=== PATIENT | female | born 1990 | race African-American/Black ===

== ENCOUNTER 2019-11-01 13:44 | Emergency (ER) | payer OTHER, SELFPAY ==
[2019-11-01 13:48] VITALS: BP 114/67; PULSE 79; RESP 16; TEMP 37; O2SAT 100
--- NOTE | 2019-11-01 14:09 | ED.GENADULT ---
HPI - General Adult General Chief complaint: Upper Respiratory Infection <Manuel Ramsey PA-C - Last Filed: 11/01/19 15:33> Stated complaint: ?SINUS INFECTION <Manuel Ramsey PA-C - Last Filed: 11/01/19 15:33> Time Seen by Provider: 11/01/19 13:48 <Manuel Ramsey PA-C - Last Filed: 11/01/19 15:33> History of Present Illness HPI narrative: Patient is a 29-year-old female who presents to emergency department for evaluation of upper respiratory symptoms for the last 2 days with congestion rhinorrhea and nonproductive cough patient denies any fever chills nausea vomiting diarrhea notes that her daughter had the flu patient did not have her flu shot this year patient has not taken anything for her symptoms on arrival to emergency department patient resting comfortably in the room in no distress. <Manuel Ramsey PA-C - Last Filed: 11/01/19 15:33> Related Data Allergies/adverse reactions: Allergies Allergy/AdvReac Type Severity Reaction Status Date / Time No Known Allergies Allergy Verified 11/01/19 13:53 <Manuel Ramsey PA-C - Last Filed: 11/01/19 15:33> Review of Systems Review of Systems: Narrative: CONSTITUTIONAL: Denies fever, chills, or sweats. EYES: Denies redness, or discharge. ENT: Positive for rhinorrhea, congestion, denies sore throat, and otalgia. RESPIRATORY: Denies dyspnea. GASTROINTESTINAL: Denies abdominal pain, nausea, vomiting, or diarrhea. GENITOURINARY: Denies dysuria or hematuria. SKIN: Denies rash or itching. MUSCULOSKELETAL: Denies back pain, joint pain, or myalgia. NEUROLOGIC: Denies headache, or weakness. <Manuel Ramsey PA-C - Last Filed: 11/01/19 15:33> PMFSH Social History Social History: Social History (Updated 11/01/19 @ 14:15 by Manuel Ramsey PA-C) Smoking status: Never smoker Gender identity (if verbalized by the patient): Female <Manuel Ramsey PA-C - Last Filed: 11/01/19 15:33> Exam Narrative: Exam Narrative: GENERAL: Well-appearing, well-nourished, and in no acute distress. HEAD: Normocephalic, atraumatic. EYES: PERRLA and EOMI. ENT: Nares clear, no rhinorrhea or epistaxis. Mucous membranes moist. Oropharynx without tonsillar hypertrophy exudate or other lesions. Bilateral TMs pearly martinez nonbulging CHEST: Clear to auscultation. No respiratory distress. No wheezes rales or rhonchi HEART: Regular rate and rhythm. No murmur heard. EXTREMITIES: Normal range of motion. No edema. SKIN: Warm, dry, no rash. NEURO: No focal deficits. Alert and oriented x3. Cranial nerves II through XII grossly intact. PSYCH: Normal mood and affect. <CLARA Russell Last Filed: 11/01/19 15:33> Course Course Emergency Course: Patient in the room in no distress aware of case findings treatment plan and diagnosis <Manuel Ramsey PA-C - Last Filed: 11/01/19 15:33> Vital Signs Vital signs: Vital Signs Temperature 37.0 C 11/01/19 13:48 Pulse Rate 79 11/01/19 13:48 Respiratory Rate 16 11/01/19 13:48 Blood Pressure 114/67 11/01/19 13:48 Pulse Oximetry 100 11/01/19 13:48 Temperature 37.0 C 11/01/19 13:48 Pulse Rate 79 11/01/19 13:48 Respiratory Rate 16 11/01/19 13:48 Blood Pressure 114/67 11/01/19 13:48 Pulse Oximetry 100 11/01/19 13:48 <Manuel Ramsey PA-C - Last Filed: 11/01/19 15:33> Vital Signs Temperature 37.0 C 11/01/19 13:48 Pulse Rate 79 11/01/19 13:48 Respiratory Rate 16 11/01/19 13:48 Blood Pressure 114/67 11/01/19 13:48 Pulse Oximetry 100 11/01/19 13:48 Temperature 37.0 C 11/01/19 13:48 Pulse Rate 79 11/01/19 13:48 Respiratory Rate 16 11/01/19 13:48 Blood Pressure 114/67 11/01/19 13:48 Pulse Oximetry 100 11/01/19 13:48 <Rachel Tang MD - Last Filed: 11/01/19 15:57> Medical Decision Making MDM Narrative Medical decision making narrative: Patient in the room with likely viral respiratory infection afebr
== END 2019-11-01 15:55 | disposition home or self-care (01) ==
PROVIDERS: Emergency Provider Emergency Medicine
DX: J06.9 Acute upper respiratory infection, unspecified (principal)
CPT/HCPCS: 87804; 99283

== ENCOUNTER 2021-02-11 09:50 | Emergency (ER) | payer OTHER, SELFPAY ==
[2021-02-11 09:56] VITALS: BP 128/82; PULSE 88; RESP 15; TEMP 36.5; O2SAT 100
--- NOTE | 2021-02-11 10:11 | ED.HA ---
HPI - Headache General Chief Complaint: Headache Stated Complaint: headache Time Seen by Provider: 02/11/21 09:59 Source: patient Mode of arrival: ambulatory Limitations: no limitations History of Present Illness HPI Narrative: This is a 30-year-old female that presents the emergency department for headache x4 days. Reports a pounding frontal headache. Does report history of headaches and sinus problems. Reports she was having some congestion and sinus pain earlier this week. Reports she has been taking ibuprofen with little relief. Has not taken anything today for headache. Denies fever, stiff neck, vomiting, vision changes, numbness, or weakness. Related Data Home Medications Medication Instructions Recorded Confirmed No Home Medications 02/11/21 02/11/21 Allergies Allergy/AdvReac Type Severity Reaction Status Date / Time No Known Allergies Allergy Verified 02/11/21 10:00 Review of Systems Review of Systems: Narrative: CONSTITUTIONAL: Denies fever EYES: Denies visual changes GASTROINTESTINAL: Denies vomiting NEUROLOGIC: Reports headache. Denies numbness, or weakness. All systems reviewed & are unremarkable except as noted in HPI and below PMFSH Past Medical History Medical History (Updated 02/11/21 @ 11:19 by Missy Landon PA-C) No active medical problems Social History Social History (Updated 11/01/19 @ 14:15 by Manuel Ramsey PA-C) Smoking status: Never smoker Gender identity (if verbalized by the patient): Female Exam Narrative: Exam Narrative: GENERAL: Well-appearing, well-nourished, and in no acute distress. HEAD: Normocephalic, atraumatic. EYES: PERRLA and EOMI. ENT: Nares clear, no rhinorrhea or epistaxis. Mucous membranes moist. Oropharynx without tonsillar hypertrophy exudate or other lesions. Bilateral TMs pearly martinez non-bulging NECK: Supple. No adenopathy or masses. CHEST: Clear to auscultation. No respiratory distress. No wheezes rales or rhonchi HEART: Regular rate and rhythm. No murmur heard. Normal peripheral pulses. EXTREMITIES: Normal range of motion. No edema. Strength equal in bilateral upper and lower extremities (5/5) SKIN: Warm, dry, no rash. NEURO: No focal deficits. Alert and oriented x3. Cranial nerves II through XII grossly intact PSYCH: Normal mood and affect Course Vital Signs Vital signs: Vital Signs Temperature 97.7 F 05/17/21 09:56 Pulse Rate 88 02/11/21 09:56 Respiratory Rate 15 02/11/21 09:56 Blood Pressure 128/82 02/11/21 09:56 Pulse Oximetry 100 02/11/21 09:56 Temperature 97.7 F 02/11/21 09:56 Pulse Rate 88 02/11/21 09:56 Respiratory Rate 15 02/11/21 09:56 Blood Pressure 128/82 02/11/21 09:56 Pulse Oximetry 100 02/11/21 09:56 MDM - Headache MDM Narrative Medical decision making narrative: Patient presents the emergency department for headache noted over the last couple of days. She is afebrile and nontoxic-appearing. She is neurologically intact. Reports relief with migraine cocktail. She is stable and felt appropriate for further outpatient evaluation. She was given warnings to return to the ER Critical Care Time Critical Care Time Critical Care Time: No Discharge Plan Discharge Clinical Impression: Headache Qualifiers: Headache type: unspecified Headache chronicity pattern: acute headache Intractability: not intractable Qualified Code(s): R51.9 - Headache, unspecified Patient Disposition: Home, Self-Care Condition: Stable Instructions: Acute Headache (ED) Additional Instructions: Return to the emergency department if you experience fever, vision changes, vomiting, sudden onset numbness or weakness, stiff neck, or any other symptoms that are concerning to you Rest. Remain well-hydrated. Tylenol or ibuprofen as needed for pain Follow-up with your primary care doctor Prescriptions: No Action No Home Medications RF: 0 Follow-up/Referrals: Nacho Plunkett R
[2021-02-11] MEDS: KETOROLAC 15 MG/ML VIAL (*BKC) IV PUSH (10:17)
[2021-02-11] MEDS: diphenhydrAMINE HCl INJ 50 MG/ML VIAL 25 MG IV PUSH (10:18)
[2021-02-11] MEDS: METOCLOPRAMIDE HCL INJ 10 MG/2 ML VIAL IV PUSH (10:18)
[2021-02-11] MEDS: SODIUM CHLORIDE 0.9% IV 1,000 ML 999 ML IV CONT (10:19)
== END 2021-02-11 11:32 | disposition home or self-care (01) ==
PROVIDERS: Emergency Provider Emergency Medicine
DX: R51.9 Headache, unspecified (principal)
CPT/HCPCS: 96361; 96365; 96375; 99284; J0131; J1200; J1885; J2765; J7030

== ENCOUNTER 2021-05-05 21:41 | Emergency (ER) | payer OTHER, SELFPAY ==
[2021-05-05 21:52] VITALS: BP 140/92; PULSE 94; RESP 18; TEMP 36.7; O2SAT 100
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
== END 2021-05-06 02:10 | disposition home or self-care (01) ==
PROVIDERS: Emergency Provider Emergency Medicine
DX: S01.112A Laceration without foreign body of left eyelid and periocular area, initial encounter (principal); Y09 Assault by unspecified means
CPT/HCPCS: 12011; 99282

== ENCOUNTER 2021-06-28 10:25 | Emergency (ER) | payer OTHER, SELFPAY ==
--- NOTE | ~2021-06-28 | XR_ITS ---
EXAMINATION: XR chest 1V portable EXAM DATE: 06/28/2021 12:54 INDICATION: Cough. TECHNIQUE: Portable AP frontal chest x-ray was obtained. There is no prior study for comparison. FINDINGS: Possibly some ill-defined bibasilar opacities, possibly early acute infectious process. No confluent consolidation, pneumothorax or pleural effusion suspected. Cardiomediastinal silhouette is normal. There are no osseous abnormalities identified. IMPRESSION: Possible early acute infection. Reviewed, dictated and finalized at location A.
[2021-06-28 11:30] VITALS: BP 109/80; PULSE 78; RESP 14; TEMP 36.5; O2SAT 99
--- NOTE | 2021-06-28 12:59 | ED.URI ---
HPI - URI/Sore Throat General Chief Complaint: Upper Respiratory Infection Stated Complaint: sore throat, congestion Time Seen by Provider: 06/28/21 12:09 Source: patient Mode of arrival: ambulatory Limitations: no limitations History of Present Illness HPI Narrative: This is a 31-year-old female that presents to the emergency department for ongoing cold symptoms over the last couple of days. Reports cough, congestion, sinus pain, and sore throat. Denies fevers or shortness of breath. Related Data Allergies Allergy/AdvReac Type Severity Reaction Status Date / Time No Known Allergies Allergy Verified 06/28/21 11:34 Review of Systems Review of Systems: CONSTITUTIONAL: Denies fever ENT: Reports rhinorrhea, congestion, sore throat RESPIRATORY: Reports cough. Denies dyspnea. All systems reviewed & are unremarkable except as noted in HPI and below PMFSH Past Medical History Medical History No active medical problems Social History Social History Smoking status: Never smoker Gender identity (if verbalized by the patient): Female Exam Narrative: GENERAL: Well-appearing, well-nourished, and in no acute distress. HEAD: Normocephalic, atraumatic. EYES: EOMI. ENT: Nares clear, no rhinorrhea or epistaxis. Mucous membranes moist. Oropharynx mildly erythematous, without tonsillar hypertrophy exudate or other lesions. Bilateral TMs pearly martinez non-bulging NECK: Supple. No adenopathy or masses. CHEST: Clear to auscultation. No respiratory distress. No wheezes rales or rhonchi HEART: Regular rate and rhythm. No murmur heard. Normal peripheral pulses. EXTREMITIES: Normal range of motion. No edema. SKIN: Warm, dry, no rash. NEURO: No focal deficits. Alert and oriented x3. PSYCH: Normal mood and affect Course Vital Signs Vital signs: Vital Signs Temperature 97.7 F 06/28/21 11:30 Pulse Rate 78 06/28/21 11:30 Respiratory Rate 14 06/28/21 11:30 Blood Pressure 109/80 06/28/21 11:30 Pulse Oximetry 99 06/28/21 11:30 Temperature 97.7 F 06/28/21 11:30 Pulse Rate 78 06/28/21 11:30 Respiratory Rate 14 06/28/21 11:30 Blood Pressure 109/80 06/28/21 11:30 Pulse Oximetry 99 06/28/21 11:30 MDM - URI/Sore Throat MDM Narrative Medical decision making narrative: Patient presents to the emergency department for ongoing cold symptoms over the last couple of days. She is afebrile and nontoxic-appearing. Lungs are clear on exam. She denies any shortness of breath. Vitals are stable. Strep screen is negative. SARS-CoV-2 was sent. Chest x-ray shows possible early acute infection. Patient will be started on oral antibiotics pending Covid swab for pneumonia. Patient is stable and felt appropriate for further outpatient evaluation. She was given warnings to return to the ER Lab Data Attestation: I reviewed the patient's lab results. Labs: Lab Results 06/28/21 Range/Units 13:40 SARS-CoV-2 RNA (RT-PCR) Pending Strep Screen Presumptive Negative *(Reference Range: Negative)* Imaging Data Radiologist's impression: ITS Impressions Chest X-Ray 06/28/21 13:06 IMPRESSION: Possible early acute infection. Critical Care Time Critical Care Time Critical Care Time: No Discharge Plan Discharge Clinical Impression: Person under investigation for severe acute respiratory syndrome coronavirus 2 (SARS-CoV-2) infection Pneumonia Qualifiers: Pneumonia type: due to unspecified organism Laterality: bilateral Lung location: lower lobe of lung Qualified Code(s): J18.9 - Pneumonia, unspecified organism Patient Disposition: Home, Self-Care Condition: Stable Instructions: Antibiotic Form, Pneumonia (ED), COVID-19 (Coronavirus Disease 2019) (ED) Additional Instructions: Return to the emergency departme
[2021-06-28 16:10] VITALS: BP 112/80; PULSE 82; RESP 18; O2SAT 98
[2021-06-29 19:34] LABS: SARS-CoV-2 RNA PCR Negative
== END 2021-06-28 16:40 | disposition home or self-care (01) ==
PROVIDERS: Physician Assistant; Emergency Provider Emergency Medicine
DX: J18.9 Pneumonia, unspecified organism (principal); Z20.822 Contact with and (suspected) exposure to COVID-19
CPT/HCPCS: 71045; 87081; 87880; 99283; C9803; U0003; U0005

== ENCOUNTER 2022-02-21 22:22 | Emergency (ER) | payer OTHER, SELFPAY ==
[2022-02-21 22:25] VITALS: BP 127/83; PULSE 79; RESP 18; TEMP 36.3; O2SAT 100
[2022-02-21 23:22] LABS: Basophils Percent Auto 0.7 % (0.2-1.2); Eosinophils Absolute Auto 0.1 K/mm3 (0-0.3); Hematocrit 32.9 % (37.0-47.0); Hemoglobin 11.2 g/dL (12.0-15.0); Immature Granulocyte Absolute 0.02 K/mm3 (0.00-0.031); Immature Granulocyte Percent A 0.3 % (0-0.5); Lymphocytes Absolute Auto 2.31 K/mm3 (0.9-3.2); Mean Corpuscular Hemoglobin 34.1 pg (26-34); Mean Corpuscular Volume 100.3 fl (80-100); Mean Platelet Volume 10.4 fl (7.4-10.4); Monocytes Absolute Auto 0.6 K/mm3 (0.1-0.6); Monocytes Percent Auto 9.3 % (2.6-8.5); Neutrophils Absolute Auto 2.9 K/mm3 (1.3-6.7); Neutrophils Percent Auto 48.7 % (45.5-73.1); Platelet Count Result 202 k/mm3 (150-375); Red Blood Count 3.28 M/mm3 (4.2-5.4); Red Cell Distribution Width 12.2 % (11.5-14.5); White Blood Count 5.9 K/mm3 (4.5-10.0)
[2022-02-21 23:30] LABS: Mucus Urine Heavy /lpf; Squamous Epithelial Cell Urine Many /hpf (Few); WBC Urine 51-75 /hpf
[2022-02-21 23:32] LABS: Alanine Aminotransferase 9 U/L (6-35); Alkaline Phosphatase 95 U/L (38-126); Anion Gap 4 mmol/L (8-16); Aspartate Amino Transferase 18 U/L (14-36); Bilirubin,Total 0.2 mg/dL (0.2-1.3); Blood Urea Nitrogen 9 mg/dL (7-17); Calcium 8.7 mg/dL (8.4-10.2); Carbon Dioxide 24 mmol/L (22-30); Chloride 105 mmol/L (98-107); Estimated Glomerular Filt Rate > 60; Glucose 96 mg/dL (65-110); Sodium 133 mmol/L (137-145)
[2022-02-21 23:36] LABS: Appearance Urine Slightly Cloudy (Clear); Color Urine Yellow (Yellow); Glucose Urine UA Negative (Negative); Ketones Urine Negative (Negative); Protein Urine Negative (Negative); Specific Grav Ur 1.025 (1.001-1.035)
[2022-02-21 23:37] LABS: Add Urine Microscopic? YES; Bilirubin Urine Negative (Negative); Blood Urine Negative (Negative); Leukocyte Esterase Ur 3+ LEU/UL (Negative); Nitrate Urine Negative (Negative); Urobilinogen Urine 0.2 mg/dL (<2.0)
[2022-02-21 23:48] LABS: Atypical Lymphocytes Present; Platelet Estimate Adequate (Adequate)
--- NOTE | 2022-02-22 00:03 | ED.PREGNANCY ---
HPI - General Chief complaint: [employer] Stated complaint: 6 weeks , cramping, burning pain Time Seen by Provider: 02/21/22 23:05 Source: patient Mode of arrival: ambulatory Limitations: no limitations History of Present Illness HPI Narrative: This is a 31-year-old G4, P3, about 6 weeks that presents to the emergency department for low back pain. Ongoing over the last week. Reports she was evaluated in outside facility and had ultrasound done that showed a yolk sac but no pole. She has not seen OB yet this . Denies fever, vomiting, vaginal bleeding or dysuria. Related Data Allergies Allergy/AdvReac Type Severity Reaction Status Date / Time No Known Allergies Allergy Verified 02/21/22 23:29 Review of Systems Review of Systems: CONSTITUTIONAL: Denies fever GASTROINTESTINAL: Denies abdominal pain, nausea, vomiting GENITOURINARY: Denies dysuria All systems reviewed & are unremarkable except as noted in HPI and below PMFSH Past Medical History Medical History No active medical problems Social History Social History Smoking status: Never smoker Gender identity (if verbalized by the patient): Female Exam Narrative: GENERAL: Well-appearing, well-nourished, and in no acute distress. HEAD: Normocephalic, atraumatic. EYES: EOMI. CHEST: Clear to auscultation. No respiratory distress. No wheezes rales or rhonchi HEART: Regular rate and rhythm. No murmur heard. Normal peripheral pulses. ABDOMEN: Soft, nontender, nondistended, normal active bowel sounds. EXTREMITIES: Normal range of motion. No edema. SKIN: Warm, dry, no rash. NEURO: No focal deficits. Alert and oriented x3. PSYCH: Normal mood and affect Course Vital Signs Vital signs: Vital Signs Temperature 97.4 F L 02/21/22 22:25 Pulse Rate 79 02/21/22 22:25 Respiratory Rate 18 02/21/22 22:25 Blood Pressure 127/83 02/21/22 22:25 Pulse Oximetry 100 02/21/22 22:25 Oxygen Delivery Room Air 02/21/22 22:25 Temperature 97.4 F L 02/21/22 22:25 Pulse Rate 79 02/21/22 22:25 Respiratory Rate 18 02/21/22 22:25 Blood Pressure 127/83 02/21/22 22:25 Pulse Oximetry 100 02/21/22 22:25 Oxygen Delivery Room Air 02/21/22 22:25 MDM - OB/Uterine Contractions MDM Narrative Medical decision making narrative: Patient presents to the emergency department for low back pain in early . She is afebrile and nontoxic-appearing. Her vitals are stable. No recent injury or trauma. CBC is without leukocytosis. Does show macrocytic anemia with hemoglobin of 11.2. Metabolic panel without concerning findings. UA with evidence of infection. This will be sent for culture. Patient's quantitative beta-hCG is 32,501 today. On her labs done a week ago it was 6000. She denies any vaginal bleeding. Will be treated with antibiotics for urinary tract infection. She did have an ultrasound done when she was evaluated which did show an intrauterine yolk sac, but she did not have a pole seen at that time. Spoke with patient that it is encouraging that her quant has risen. She does report she has a OB. She was instructed to have close follow-up with her doctor. She was given warnings to return to the ER Lab Data Attestation: I reviewed the patient's lab results. Result diagrams: 02/21/22 23:16 02/21/22 23:16 Labs: Lab Results 02/21/22 02/21/22 02/21/22 Range/Units 23:16 23:16 23:16 WBC 5.9 (4.5-10.0) K/mm3 RBC 3.28 L (4.2-5.4) M/mm3 Hgb 11.2 L (12.0-15.0) g/dL Hct 32.9 L (37.0-47.0) % MCV 100.3 H (80-100) fl MCH 34.1 H (26-34) pg MCHC 34.0 (32-36) g/dl RDW 12.2 (11.5-14.5) % Plt Count 202 (150-375) k/mm3 MPV 10.4 (7.4-10.4) fl Immature Gran % (Auto) 0.3 (0-0.5) % Neut % (Auto) 48.7 (45.5-73.1) %
[2022-02-22 01:29] VITALS: BP 97/61; PULSE 67; RESP 17; O2SAT 100
== END 2022-02-22 01:31 | disposition home or self-care (01) ==
PROVIDERS: Physician Assistant; Emergency Provider Emergency Medicine
DX: N30.00 Acute cystitis without hematuria (principal); O99.891 Other specified diseases and conditions complicating pregnancy
CPT/HCPCS: 36415; 80053; 81001; 81025; 84702; 85025; 87086; 87088; 96365; 96368; 99284; J0131; J0696